=== PATIENT | male | born 1995 | race Two or more races ===

== ENCOUNTER 2020-10-19 22:27 | Emergency (ER) | payer OTHER ==
[~2020-10-19] VITALS: Ht 180.3 cm; Wt 117.9 kg
[2020-10-20] MEDS ORDERED: TETANUS-DIPTH-ACEL PERTUSSIS 0.5ML SYR Tdap IM ONE (04:15)
[2020-10-20 05:26] VITALS: BP 140/84
== END 2020-10-20 04:04 | disposition home or self-care (01) ==
LOC: ER 22:32
DX: S60.511A Abrasion of right hand, initial encounter (principal); W54.0XXA Bitten by dog, initial encounter; Y93.01 Activity, walking, marching and hiking; Y92.89 Other specified places as the place of occurrence of the external cause; Y99.8 Other external cause status
CPT/HCPCS: 73130; 90471; 90715